=== PATIENT | male | born 1985 | race Caucasian/White ===

== ENCOUNTER 2016-10-06 05:40 | Outpatient (CLI) | payer BC ==
[~2016-10-06] VITALS: Ht 190.5 cm; Wt 96.2 kg
[~2016-10-06 05:40] MED LIST: [UNRECOGNIZED DRUG - REMARK]
--- OUTSIDE RECORDS SUMMARY | 2016-10-06 05:43 | XMS REPORT | Continuity of Care Document ---
Author Author [facility] Address Unknown Phone Unavailable Allergies Active Description Code Type Severity Reaction Onset Reported/Identified Relationship to Patient Clinical Status Yes No Known Drug Allergies [id number] Drug Allergy Unknown N/ A 09/29/2010 Medications Problems Date Dx Coded Attending Type Code Diagnosis Diagnosed By 09/29/2010 Ot 882.0 OPEN WOUND OF HAND 09/29/2010 Ot 883.0 OPEN WOUND OF FINGER 09/29/2010 Ot E000.8 OTHER EXTERNAL CAUSE STATUS 09/29/2010 Ot E849.0 ACCIDENT IN HOME 09/29/2010 Ot E888.0 FALL STRIKING SHARP OBJECT 09/29/2010 Ot E920.8 ACC-CUTTING INSTRUM NEC 09/29/2010 Ot V06.1 [id number], COMBINED [ 09/20/2012 462 PHARYNGITIS ACUTE 09/20/2012 780.4 DIZZINESS AND VERTIGO 09/20/2012 JEANINE HENRIQUEZ DO 462 PHARYNGITIS ACUTE 09/20/2012 JEANINE HENRIQUEZ DO 780.4 DIZZINESS AND VERTIGO 09/20/2012 462 PHARYNGITIS ACUTE 09/20/2012 780.4 DIZZINESS AND VERTIGO 09/20/2012 462 PHARYNGITIS ACUTE 09/20/2012 780.4 DIZZINESS AND VERTIGO 09/20/2012 462 PHARYNGITIS ACUTE 09/20/2012 780.4 DIZZINESS AND VERTIGO 09/20/2012 462 PHARYNGITIS ACUTE 09/20/2012 780.4 DIZZINESS AND VERTIGO 09/20/2012 JEANINE HENRIQUEZ DO 462 PHARYNGITIS ACUTE 09/20/2012 JEANINE HENRIQUEZ DO 780.4 DIZZINESS AND VERTIGO 10/09/2012 JEANINE HENRIQUEZ DO 780.2 SYNCOPE AND COLLAPSE 10/09/2012 780.2 SYNCOPE AND COLLAPSE 10/09/2012 780.2 SYNCOPE AND COLLAPSE 10/09/2012 780.2 SYNCOPE AND COLLAPSE 10/09/2012 780.2 SYNCOPE AND COLLAPSE 10/09/2012 JEANINE HENRIQUEZ DO 780.2 SYNCOPE AND COLLAPSE 12/19/2012 780.79 fatigue 12/19/2012 785.1 PALPITATIONS 12/19/2012 780.79 fatigue 12/19/2012 785.1 PALPITATIONS 12/19/2012 JEANINE HENRIQUEZ DO 780.79 fatigue 12/19/2012 JEANINE HENRIQUEZ DO 785.1 PALPITATIONS 12/25/2012 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 12/25/2012 JEANINE HENRIQUEZ DO K 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 01/08/2013 JEANINE HENRIQUEZ DO 706.1 ACNE 01/09/2013 Ot 780.2 SYNCOPE AND COLLAPSE 01/09/2013 Ot 780.4 DIZZINESS AND GIDDINESS 09/16/2015 Ot 780.2 09/16/2015 Ot 780.2 09/16/2015 Ot 780.4 09/16/2015 Ot 780.4 09/21/2015 Ot 780.2 09/21/2015 Ot 780.2 09/21/2015 Ot 780.4 09/21/2015 Ot 780.4 09/21/2015 HARDY RIVERO, JESUSITA Wiley Ot R10.12 09/21/2015 HARDY RIVERO, JESUSITA Wiley Ot R11.0 09/21/2015 HARDY RIVERO, JESUSITA Wiley Ot R50.9 10/01/2015 HARDY RIVERO, JESUSITA Wiley Ot R10.12 10/01/2015 HARDY RIVERO, JESUSITA Wiley Ot R11.0 10/01/2015 HARDY RIVERO, JESUSITA Wiley Ot R50.9 11/06/2015 HARDY RIVERO, JESUSITA Wiley Ot R10.12 11/06/2015 HARDY RIVERO, JESUSITA Wiley Ot R11.0 11/06/2015 HARDY RIVERO, JESUSITA Wiley Ot R50.9 03/07/2016 Ot 780.2 SYNCOPE AND COLLAPSE 03/07/2016 Ot 780.2 SYNCOPE AND COLLAPSE 03/07/2016 Ot 780.4 DIZZINESS AND GIDDINESS 03/07/2016 Ot 780.4 DIZZINESS AND GIDDINESS 03/07/2016 Ot 780.2 SYNCOPE AND COLLAPSE 03/07/2016 Ot 780.4 DIZZINESS AND GIDDINESS 03/07/2016 HARDY RIVERO, JESUSITA Wiley Ot R10.12 LEFT UPPER QUADRANT PAIN 03/07/2016 JESUSITA MIJARES Ot R11.0 NAUSEA 03/07/2016 JESUSITA MIJARES Ot R50.9 FEVER, UNSPECIFIED 03/07/2016 JESUSITA MIJARES Ot R10.12 LEFT UPPER QUADRANT PAIN 03/07/2016 JESUSITA MIJARES Ot R11.0 NAUSEA 03/07/2016 JESUSITA MIJARES Ot R50.9 FEVER, UNSPECIFIED Procedures Code Description [place] [address] ROUTINE VENIPUNCTURE 09/20/2012 38573 STREP A (IN-HOUSE) 09/20/2012 50507 CMP 09/20/2012 18121 TSH 09/20/2012 12918 CBC 09/20/2012 50297 EKG, TRACING (IN-HOUSE) 09/20/2012 21700 EVENT MONITOR CARDI GIANNI CASTROZ 10/09 20498 EVENT MONITOR CARDI MATTHEW CHUCK 10/10 87319 ROUTINE VENIPUNCTURE 10/10/2012 92903 EKG, TRACING (IN-HOUSE) 10/10/2012 27979 LIPID PANEL 10/10 88897 BNP 10/10/2012 99875 CRP HS (CARDIO) 10/10/2012 31664 NUCLEAR STRESS TESTING 11/08/2012 16178 ECHO 2D 2012 61760 TILT TABLE EVALUATION 11/08/2012 59629 ROUTINE VENIPUNCTURE 12/19/2012 23671 CBC 12/19/2012 29366 TESTOSTERONE TOTAL 12/19/2012 01742 T4 12/19/2012 99904 TSH 12/19/2012 83891 OXIMETRY 2012 07629 ROUTINE VENIPUNCTURE 12/25/2012 02878 PSA FREE AND TOTAL 12/25/2012 Results Encounters ACCT No. Visit Date/Time Discharge Status Pt. Type Provider Facility Loc./Unit Complaint [id number] 01/08/2013 13:28:00 01/08/2013 23: 59:59 CLS Outpatient JEANINE HENRIQUEZ DO [id number] 11/07/2012 10:23:00 11/07/2012 23: 59:59 CLS Outpatient [id number] 10/10/2012 13:55:00 10/10/2012 23: 59:59 CLS Outpatient [id number] 10/09/2012 13:19:00 10/09/2012 23: 59:59 CLS Outpatient JEANINE HENRIQUEZ DO [id number] 09/20/2012 09:40:00 09/20/2012 23: 59:59 [facility] Outpatient [id number] 12/25/2012 11:36:00 Document Registration [id number] 12/19/2012 10:05:00 Document Registration
== END 2016-10-06 15:14 ==
LOC: PREOP 05:40
PROVIDERS: ATTEND Surgery
DX: Z01.818 Encounter for other preprocedural examination (principal); R13.10 Dysphagia, unspecified

== ENCOUNTER 2016-10-11 06:55 | Day surgery (SDC) | payer BC ==
[~2016-10-11] VITALS: Ht 190.5 cm; Wt 96.2 kg
--- OUTSIDE RECORDS SUMMARY | 2016-10-11 07:00 | XMS REPORT | Continuity of Care Document ---
Author Author [facility] of [facility] Address Unknown Phone Unavailable Allergies Active Description Code Type Severity Reaction Onset Reported/Identified Relationship to Patient Clinical Status Yes No Known Drug Allergies [id number] Drug Allergy Unknown N/ A 09/29/2010 Medications Problems Date Dx Coded Attending Type Code Diagnosis Diagnosed By 09/29/2010 Ot 882.0 OPEN WOUND OF HAND 09/29/2010 Ot 883.0 OPEN WOUND OF FINGER 09/29/2010 Ot E000.8 OTHER EXTERNAL CAUSE STATUS 09/29/2010 Ot E849.0 ACCIDENT IN HOME 09/29/2010 Ot E888.0 FALL STRIKING SHARP OBJECT 09/29/2010 Ot E920.8 ACC-CUTTING INSTRUM NEC 09/29/2010 Ot V06.1 [id number], COMBINED [ 09/20/2012 462 PHARYNGITIS ACUTE 09/20/2012 [...] Procedures Code Description [place] [address] ROUTINE VENIPUNCTURE 09/20/2012 52851 STREP A (IN-HOUSE) 09/20/2012 45622 CMP 09/20/2012 54879 TSH 09/20/2012 16933 CBC 09/20/2012 86857 EKG, TRACING (IN-HOUSE) 09/20/2012 44714 EVENT MONITOR CARDI GIANNI CASTROZ 10/09 13750 EVENT MONITOR CARDI MATTHEW CHUCK 10/10 36785 ROUTINE VENIPUNCTURE 10/10/2012 08484 EKG, TRACING (IN-HOUSE) 10/10/2012 74046 LIPID PANEL 10/10 55786 BNP 10/10/2012 10329 CRP HS (CARDIO) 10/10/2012 06085 NUCLEAR STRESS TESTING 11/08/2012 77896 ECHO 2D 2012 60123 TILT TABLE EVALUATION 11/08/2012 34539 ROUTINE VENIPUNCTURE 12/19/2012 43171 CBC 12/19/2012 26277 TESTOSTERONE TOTAL 12/19/2012 69208 T4 12/19/2012 43506 TSH 12/19/2012 30577 OXIMETRY 2012 75924 ROUTINE VENIPUNCTURE 12/25/2012 68673 PSA FREE AND TOTAL 12/25/2012 Results Encounters ACCT No. Visit Date/Time Discharge Status Pt. Type Provider Facility Loc./Unit Complaint [id number] 01/08/2013 13:28:00 01/08/2013 23: 59:59 CLS Outpatient JEANINE HENRIQUEZ DO [id number] 11/07/2012 10:23:00 11/07/2012 23: 59:59 CLS Outpatient [id number] 10/10/2012 13:55:00 10/10/2012 23: 59:59 CLS Outpatient [id number] 10/09/2012 13:19:00 10/09/2012 23: 59:59 CLS Outpatient JEANINE HENRIQUEZ DO [id number] 09/20/2012 09:40:00 09/20/2012 23: 59:59 [facility] Outpatient [id number] 12/25/2012 11:36:00 Document Registration [id number] 12/19/2012 10:05:00 Document Registration
--- OUTSIDE RECORDS SUMMARY | 2016-10-11 07:00 | XMS REPORT | Continuity of Care Document ---
Author Author [facility] Address Unknown Phone Unavailable Allergies Active Description Code Type Severity Reaction Onset Reported/Identified Relationship to Patient Clinical Status Yes No Known Drug Allergies [id number] Drug Allergy Unknown N/ A 09/29/2010 Medications Problems Date Dx Coded Attending Type Code Diagnosis Diagnosed By 09/29/2010 Ot 882.0 OPEN WOUND OF HAND 09/29/2010 Ot 883.0 OPEN WOUND OF FINGER 09/29/2010 Ot E000.8 OTHER EXTERNAL CAUSE STATUS 09/29/2010 Ot E849.0 ACCIDENT IN HOME 09/29/2010 Ot E888.0 FALL STRIKING SHARP OBJECT 09/29/2010 Ot E920.8 ACC-CUTTING INSTRUM NEC 09/29/2010 Ot V06.1 [id number], COMBINED [ 09/20/2012 462 PHARYNGITIS ACUTE 09/20/2012 [...] Procedures Code Description [place] [address] ROUTINE VENIPUNCTURE 09/20/2012 29779 STREP A (IN-HOUSE) 09/20/2012 93618 CMP 09/20/2012 42529 TSH 09/20/2012 80336 CBC 09/20/2012 68248 EKG, TRACING (IN-HOUSE) 09/20/2012 29713 EVENT MONITOR CARDI GIANNI CASTROZ 10/09 35207 EVENT MONITOR CARDI MATTHEW CHUCK 10/10 94040 ROUTINE VENIPUNCTURE 10/10/2012 50966 EKG, TRACING (IN-HOUSE) 10/10/2012 18809 LIPID PANEL 10/10 85148 BNP 10/10/2012 58308 CRP HS (CARDIO) 10/10/2012 67302 NUCLEAR STRESS TESTING 11/08/2012 08420 ECHO 2D 2012 22870 TILT TABLE EVALUATION 11/08/2012 40962 ROUTINE VENIPUNCTURE 12/19/2012 98875 CBC 12/19/2012 03074 TESTOSTERONE TOTAL 12/19/2012 27057 T4 12/19/2012 43525 TSH 12/19/2012 49745 OXIMETRY 2012 68936 ROUTINE VENIPUNCTURE 12/25/2012 37587 PSA FREE AND TOTAL 12/25/2012 Results Encounters ACCT No. Visit Date/Time Discharge Status Pt. Type Provider Facility Loc./Unit Complaint [id number] 01/08/2013 13:28:00 01/08/2013 23: 59:59 CLS Outpatient JEANINE HENRIQUEZ DO [id number] 11/07/2012 10:23:00 11/07/2012 23: 59:59 CLS Outpatient [id number] 10/10/2012 13:55:00 10/10/2012 23: 59:59 CLS Outpatient [id number] 10/09/2012 13:19:00 10/09/2012 23: 59:59 CLS Outpatient JEANINE HENRIQUEZ DO [id number] 09/20/2012 09:40:00 09/20/2012 23: 59:[address] [facility] Outpatient [id number] 12/25/2012 11:36:00 Document Registration [id number] 12/19/2012 10:05:00 Document Registration
[2016-10-11] MEDS ORDERED: NS IV 1000 ML 1,000 ML IV STA (07:16)
[2016-10-11] MEDS ORDERED: HURRICAINE EXT TUBE (BENZOCAINE) XX PRN (07:30)
[2016-10-11] MEDS ORDERED: FLUMAZENIL (ROMAZICON) 0.1 MG/ML 5 ML VIAL INJ PRN (07:30)
[2016-10-11] MEDS ORDERED: MIDAZOLAM 2 MG/2 ML (VERSED) VIAL IVP PRN (07:30)
[2016-10-11] MEDS ORDERED: fentaNYL INJECTION 100 MCG/2 ML AMP IVP PRN (07:30)
[2016-10-11] MEDS ORDERED: NALOXONE 0.4 MG/ML 1 ML (NARCAN) VIAL IVP PRN (07:30)
--- NOTE | 2016-10-11 07:38 | Progress Note-Pre Operative ---
Pre-Operative Progress Note H&P Reviewed The H&P was reviewed, patient examined and no changes noted. Date H&P Reviewed: Oct 11, 2016 Time H&P Reviewed: 07:38 Pre-Operative Diagnosis: dysphagia MONIK STEINBERG DO Oct 11, 2016 7:38 am
[2016-10-11 07:52] VITALS: BP 118/80
[2016-10-11] MEDS ORDERED: proPOfol 200 MG/20 ML (DIPRIVAN) VIAL IV ONE (08:25)
[2016-10-11] MEDS ORDERED: MIDAZOLAM 2 MG/2 ML (VERSED) VIAL ONE (08:26)
--- NOTE | 2016-10-11 08:52 | Progress Note-Post Operative ---
Post-Operative Progess Note Pre-Operative Diagnosis dysphagia Post-Operative Diagnosis gastritis, reflux esophagitis Post-Op Procedure Note Date of Procedure: Oct 11, 2016 Name of Procedure: egd c biopsies Procedure Note/Findings see note Anesthesia Type per animator Estimated blood loss (mL): none Specimen(s) collected antrum, body, distal esophagus MONIK STEINBERG DO Oct 11, 2016 8:52 am
[2016-10-11] MEDS ORDERED: PANT40TA2 PO (08:55)
[2016-10-11] MEDS ORDERED: SUCR1TAB36 PO (08:55)
--- NOTE | 2016-10-11 08:56 | Discharge Inst-Simple/Standard ---
Discharge Inst-Standard Discharge Medications New, Converted or Re-Newed RX: RX on Chart Patient Instructions/Follow Up Plan of Care/Instructions/FU: 3 weeks Sylvia Activity as Tolerated: Yes Discharge Diet: Regular Diet MONIK STEINBERG DO Oct 11, 2016 8:56 am
[2016-10-11 09:15] VITALS: BP 121/72
[2016-10-11] MEDS ORDERED: OMEP20TA33 PO (09:32)
[2016-10-11 09:45] VITALS: BP 128/88
[2016-10-11 10:38] VITALS: BP 128/88
--- NOTE | 2016-10-11 12:49 | PROCEDURE REPORT ---
PROCEDURE PHYSICIAN: MONIK STEINBERG DATE OF PROCEDURE: 10/11/2016 PREOPERATIVE DIAGNOSIS: Dysphagia. POSTOPERATIVE DIAGNOSES: 1. Gastritis. 2. Reflux esophagitis. PROCEDURE: EGD with biopsies. SURGEON: Sylvia. ANESTHESIA: Per ELECTROLYSIST. ESTIMATED BLOOD LOSS: None. COMPLICATIONS: None. INDICATIONS: The patient is a 31-year-old male with worsening reflux and having difficulty swallowing. The patient understands risks and benefits of the procedure and wished to proceed with procedure. Consent was signed on the chart. PROCEDURE: The patient was taken to the endoscopy suite, placed in left lateral recumbent position. Timeout was performed. The scope was inserted into the mouth down the esophagus, stomach and into the duodenum without difficulty. There were no polyps, masses, ulcerations within the duodenum. The scope was then slowly retracted back into the stomach and further insufflated. The stomach had generalized erythematous look consistent with gastritis. Biopsy of the antrum was obtained. The scope was also retroflexed noting more erythema and a biopsy of the body was obtained. The scope was then returned to its normal position and slowly withdrawn. There were some changes consistent with some reflux esophagitis. Biopsy was obtained. The scope was slowly retracted back until completely removed noting no other pathology. RECOMMENDATIONS: The patient will be started on Protonix and 40 mg daily and Carafate 1 gram 4 times a day. We will see him back in the office in approximately 3 weeks and see how he is doing at that time. We will go over pathology as well. If he has any problems prior to that, he should be reevaluated at that time. Job ID: [id number] Dictated Date: 10/11/2016 09:00:42 Pre Press Operator Date: 10/11/2016 12:43:10 / chester
== END 2016-10-11 09:50 | disposition home or self-care (01) ==
LOC: ENDO 06:55
PROVIDERS: ATTEND Surgery
DX: K21.0 Gastro-esophageal reflux disease with esophagitis (principal); K29.70 Gastritis, unspecified, without bleeding
CPT/HCPCS: 88305; 88342

== ENCOUNTER 2019-06-23 14:48 | Emergency (ER) | payer BC ==
[~2019-06-23] VITALS: Ht 182 cm; Wt 100.0 kg
[~2019-06-23 14:48] MED LIST changes: +OMEP20TA33 PO; +PANT40TA2 PO; +SUCR1TAB36 PO
[2019-06-23] MEDS ORDERED: NS IV 1000 ML 1,000 ML IV SCH (15:00)
[2019-06-23] MEDS ORDERED: HYOSCYAMINE 0.125 MG (LEVSIN) TAB PO ONE (15:00)
[2019-06-23] MEDS ORDERED: ONDANSETRON 4 MG (ZOFRAN) ORAL DISSOLVE TAB PO ONE (15:00)
--- NOTE | 2019-06-23 15:18 | ED GI ---
General Chief Complaint: Abdominal/GI Problems Stated Complaint: STOMACH PAIN Nursing Triage Note: THE PT IS AMBULATORY TO THE ROOM WITHOUT DIFFICULTY. NO DISTRESS IS SEEN ON ARRIVAL. LOC IS NORMAL FOR THE PT. Sepsis Screen: No Definite Risk Source of Information: Patient Exam Limitations: No Limitations History of Present Illness Date Seen by Provider: Jun 23, 2019 Time Seen by Provider: 15:17 Initial Comments To ER with reports of periumbilical abdominal pain described as cramping associated with diarrhea about 5-6 episodes today, he did have a bit of blood in it but attributes that to his hemorrhoid. No nausea or vomiting. No fever or chills. Timing/Duration: 1-2 Days Severity/Quality: Cramping Location: Periumbilical Radiation: No Radiation Activities at Onset: None Associated Symptoms: Denies Symptoms Allergies and Home Medications Allergies Coded Allergies: No Known Drug Allergies (Verified , 10/11/16) Home Medications Omeprazole Magnesium 20 Mg Tablet.dr, 20 MG PO DAILY Prescribed by: ARLETH DIGGS on 10/11/16 0932 Sucralfate 1 Gm Tablet, 1 GM PO QID Prescribed by: MONIK STEINBERG on 10/11/16 0855 Patient Home Medication List Home Medication List Reviewed: Yes Review of Systems Review of Systems Constitutional: see HPI EENTM: No Symptoms Reported Respiratory: No Symptoms Reported Cardiovascular: No Symptoms Reported Gastrointestinal: Abdominal Pain, Diarrhea Genitourinary: No Symptoms Reported Musculoskeletal: no symptoms reported Skin: no symptoms reported Psychiatric/Neurological: No Symptoms Reported Endocrine: No Symptoms Reported Past Qjonkrh-Rejitl-Tzcyxj Hx Patient Social History Recent Foreign Travel: No Contact w/Someone Who Travel: No Recent Infectious Disease Expo: No Recent Hopitalizations: No Immunizations Up To Date Date of Influenza Vaccine: Apr 14, 2016 Seasonal Allergies Seasonal Allergies: No Physical Exam Vital Signs Vital Signs - First Documented 06/23/19 14:54 Temp 37.4 Pulse 80 Resp 16 B/P (MAP) 140/94 (109) Capillary Refill : Less Than 3 Seconds Height/Weight/BMI Height: 6'3.00" Weight: 212lbs. 0.0oz. 96.969032ns; 30.00 BMI Method: General Appearance: WD/WN, no apparent distress HEENT: PERRL/EOMI, normal ENT inspection Respiratory: no respiratory distress, no accessory muscle use Gastrointestinal: normal bowel sounds, soft, tenderness Extremities: normal range of motion, non-tender Neurologic/Psychiatric: alert, normal mood/affect, oriented x 3 Skin: normal color, warm/dry Progress/Results/Core Measures Results/Orders Lab Results Laboratory Tests Test 06/23/19 15:10 Range/Units White Blood Count 6.6 4.3-11.0 10^3/uL Red Blood Count 4.96 4.35-5.85 10^6/uL Hemoglobin 14.6 13.3-17.7 G/DL Hematocrit 43 40-54 % Mean Corpuscular Volume 87 80-99 FL Mean Corpuscular Hemoglobin 29 25-34 PG Mean Corpuscular Hemoglobin Concent 34 32-36 G/DL Red Cell Distribution Width 13.0 10.0-14.5 % Platelet Count 246 130-400 10^3/uL Mean Platelet Volume 10.1 7.4-10.4 FL Neutrophils (%) (Auto) 73 42-75 % Lymphocytes (%) (Auto) 15 12-44 % Monocytes (%) (Auto) 10 0-12 % Eosinophils (%) (Auto) 2 0-10 % Basophils (%) (Auto) 0 0-10 % Neutrophils # (Auto) 4.8 1.8-7.8 X 10^3 Lymphocytes # (Auto) 1.0 1.0-4.0 X 10^3 Monocytes # (Auto) 0.7 0.0-1.0 X 10^3 Eosinophils # (Auto) 0.2 0.0-0.3 10^3/uL Basophils # (Auto) 0.0 0.0-0.1 10^3/uL Sodium Level 142 135-145 MMOL/L Potassium Level 3.7 3.6-5.0 MMOL/L Chloride Level 106 98-107 MMOL/L Carbon Dioxide Level 23 21-32 MMOL/L Anion Gap 13 5-14 MMOL/L Blood Urea Nitrogen 11 7-18 MG/DL Creatinine 0.88 0.60-1.30 MG/DL Estimat Glomerular Filtration Rate > 60 BUN/Creatinine Ratio 13 Glucose Level 92 70-105 MG/DL Calcium Level 8.7 8.5-10.1 MG/DL Corrected Calcium 8.5 8.5-10.1 MG/DL Total Bilirubin 0.6 0.1-1.0 MG/DL Aspartate Amino Transf (AST/SGOT) 28 5-34 U/L Alanine Aminotransferase (ALT/SGPT) 36 0-55 U/L Alkaline Phosphatase 64 40-136 U/L Total Protein 6.9 6.4-8.2 GM/DL Albumin 4.2 3.2-4.5 GM/DL Lipase 77 8-78 U/L My Orders Orders - NIDIA NATHAN APRN Cbc With Automated Diff (06/23/19 14:55) Comprehensive Metabolic Panel (06/23/19 14:55) Lipase (06/23/19 14:55) Ed Iv/Invasive Line Start (06/23/19 14:55) Ns Iv 1000 Ml (Sodium Chloride 0.9%) (06/23/19 15:00) Ondansetron Oral Dissolve Tab (Zofran (06/23/19 15:00) Hyoscyamine Sl Tablet (Levsin Sl Tablet) (06/23/19 15:00) Medications Given in ED Current Medications Medications Dose Ordered Sig/Gloria Route Start Time Stop Time Status Last Admin Dose Admin Hyoscyamine Sulfate 0.25 mg ONCE ONCE PO 06/23/19 15:00 06/23/19 15:01 DC 06/23/19 15:05 0.25 MG Ondansetron HCl 4 mg ONCE ONCE PO 06/23/19 15:00 06/23/19 15:01 DC 06/23/19 15:06 4 MG Vital Signs/I&O 06/23/19 14:54 Temp 37.4 Pulse 80 Resp 16 B/P (MAP) 140/94 (109) Blood Pressure Mean: 109 POS Departure Impression Primary Impression: Gastroenteritis Disposition: 01 HOME, SELF-CARE Condition: Stable Departure-Patient Inst. Decision time for Depature: 15:56 Referrals: NO,LOCAL PHYSICIAN (PCP/Family) Primary Care Physician Patient Instructions: [id number] Add. Discharge Instructions: 1. Use hwux-ukz-kroomwu Imodium as needed for the diarrhea 2. Clear liquids only for the next 12-24 hours then you may add things in like bananas rice applesauce and toast. Return to ER for any worsening pain fevers or other concerns. Follow-up with your doctor this week. All discharge instructions reviewed with patient and/or family. Voiced understanding. Work/School Note: Work Release Form Date Seen in the Emergency Department: Jun 23, 2019 Return to Work: Jun 25, 2019 NIDIA NATHAN APRN Jun 23, 2019 15:18 POS
[2019-06-23 15:33] LABS: BASOPHILS % (AUTO) 0 % (0-10); EOSINOPHILS # (AUTO) 0.2 10^3/uL (0.0-0.3); EOSINOPHILS % (AUTO) 2 % (0-10); HEMATOCRIT 43 % (40-54); HEMOGLOBIN 14.6 G/DL (13.3-17.7); LYMPHOCYTES % (AUTO) 15 % (12-44); MEAN CORPUSCULAR HEMOGLOBIN 29 PG (25-34); MEAN CORPUSCULAR HGB CONC 34 G/DL (32-36); MEAN CORPUSCULAR VOLUME 87 FL (80-99); MEAN PLATELET VOLUME 10.1 FL (7.4-10.4); MONOCYTES # (AUTO) 0.7 X 10^3 (0.0-1.0); MONOCYTES % (AUTO) 10 % (0-12); NEUTROPHILS # (AUTO) 4.8 X 10^3 (1.8-7.8); NEUTROPHILS % (AUTO) 73 % (42-75); PLATELET COUNT 246 10^3/uL (130-400); WHITE BLOOD COUNT 6.6 10^3/uL (4.3-11.0)
[2019-06-23 15:47] LABS: ALANINE AMINOTRANSFERASE 36 U/L (0-55); ALBUMIN 4.2 GM/DL (3.2-4.5); ALKALINE PHOSPHATASE 64 U/L (40-136); BILIRUBIN,TOTAL 0.6 MG/DL (0.1-1.0); BUN/CREATININE RATIO 13; CALCIUM 8.7 MG/DL (8.5-10.1); CARBON DIOXIDE 23 MMOL/L (21-32); CHLORIDE 106 MMOL/L (98-107); CREATININE SERUM 0.88 MG/DL (0.60-1.30); GFR ESTIMATED > 60; GLUCOSE 92 MG/DL (70-105); LIPASE 77 U/L (8-78); POTASSIUM 3.7 MMOL/L (3.6-5.0); SODIUM 142 MMOL/L (135-145); TOTAL PROTEIN 6.9 GM/DL (6.4-8.2)
[2019-06-23 16:05] VITALS: BP 140/90
== END 2019-06-23 16:07 | disposition home or self-care (01) ==
LOC: EDUNIT# 14:48 → ER 14:49
DX: K52.9 Noninfective gastroenteritis and colitis, unspecified (principal)
CPT/HCPCS: 36415; 80053; 83690; 85025; 96360

== ENCOUNTER 2020-08-25 05:31 | Outpatient (RCR) | payer BC ==
[~2020-08-25] VITALS: Ht 187 cm; Wt 100.9 kg
[~2020-08-25 05:31] MED LIST changes: +ESOM20TA PO
== END 2020-08-25 09:38 | disposition home or self-care (01) ==
LOC: PREOP 05:31
PROVIDERS: ATTEND Surgery
DX: Z01.812 Encounter for preprocedural laboratory examination (principal); K92.1 Melena; L98.8 Other specified disorders of the skin and subcutaneous tissue; Z20.822 Contact with and (suspected) exposure to COVID-19
CPT/HCPCS: 87635

== ENCOUNTER 2020-08-27 08:24 | Day surgery (SDC) | payer BC ==
[~2020-08-27] VITALS: Ht 187 cm; Wt 100.9 kg
[2020-08-27] VITALS (9 sets, daily range): BP systolic 108–135; BP diastolic 60–89
[2020-08-27] MEDS ORDERED: fentaNYL INJECTION 100 MCG/2 ML AMP ONE (08:59)
[2020-08-27] MEDS ORDERED: ceFAZolin 2 GM IV Premixed 50 ML IV ONE (09:00)
[2020-08-27] MEDS ORDERED: LACTATED RINGERS 1,000 ML IV PRN (09:00)
[2020-08-27] MEDS ORDERED: MIDAZOLAM 2 MG/2 ML (VERSED) VIAL ONE (09:00)
[2020-08-27] MEDS ORDERED: ONDANSETRON 4 MG/2 ML (SDV) Z0FRAN ONE (09:03)
[2020-08-27] MEDS ORDERED: proPOfol 200 MG/20 ML (DIPRIVAN) VIAL IV ONE (09:03)
[2020-08-27] MEDS ORDERED: SEVOFLURANE (ULTANE) 15 ML INHAL SOLN ONE ×2 (09:03→13:02)
[2020-08-27] MEDS ORDERED: LIDOCAINE PF 2% 5 ML (XYLOCAINE) VIAL ONE (09:03)
--- NOTE | 2020-08-27 10:08 | Progress Note-Pre Operative ---
Pre-Operative Progress Note H&P Reviewed The H&P was reviewed, patient examined and no changes noted. Date Seen by Provider: Aug 27, 2020 Time Seen by Provider: 10:07 Date H&P Reviewed: Aug 27, 2020 Time H&P Reviewed: 10:08 Pre-Operative Diagnosis: blood in stool, fistula MONIK STEINBERG DO Aug 27, 2020 10:08
[2020-08-27] MEDS ORDERED: LIDOCAINE/EPI 1%-1:100,000 (XYLOCAINE) 50 ML ONE (12:20)
[2020-08-27] MEDS ORDERED: morphine INJ 10 MG/ML 1ML (SYR OR VIAL) IVP ONE (13:30)
[2020-08-27] MEDS ORDERED: fentaNYL INJECTION 100 MCG/2 ML AMP IVP ONE (13:30)
[2020-08-27] MEDS ORDERED: ONDANSETRON 4 MG/2 ML (SDV) Z0FRAN IVP PRN (13:30)
--- NOTE | 2020-08-27 13:49 | Progress Note-Post Operative ---
Post-Operative Progess Note Surgeon (s)/Shake Backboard Notcher (s) Surgeon MONIK STEINBERG DO Shake Backboard Notcher: na Pre-Operative Diagnosis blood in stool, fistula Post-Operative Diagnosis diverticulosis, anocutaneous fistula Procedure & Operative Findings Date of Procedure 08/27/20 Procedure Performed/Findings flex sig, exam under anesthesia, seton placement Anesthesia Type general Estimated Blood Loss Estimated blood loss (mL): none Specimens/Packing Specimens Removed na MONIK STEINBERG DO Aug 27, 2020 13:49
[2020-08-27] MEDS ORDERED: DOCU-143 PO (13:51)
[2020-08-27] MEDS ORDERED: HYDR-4226 PO (13:51)
--- NOTE | 2020-08-27 13:52 | Discharge Inst-Simple/Standard ---
Discharge Inst-Standard Discharge Medications New, Converted or Re-Newed RX: RX on Chart Patient Instructions/Follow Up Plan of Care/Instructions/FU: 1 week Sylvia Activity as Tolerated: Yes Discharge Diet: Regular Diet (high fiber) Other Inst to Patient Follow up Appt: Make appointment for 1 week. Instructions: No strenuous activity. May shower in 24 hours, no tub bath or soaking. Use incentive spirometer at home as directed. No Smoking Skin/Wound Care: Keep area clean and dry. Sitz bath after bowel movements and at least 2 times a day. Do not remove seton ( plastic cord) Symptoms to Report: Appetite Changes, Extremity Discoloration, Numbness/Tingling, Swelling Increased, Bleeding Excessive, Eyesight Changes, Pain Increased, Urine Color Change, Constipation(Persistent), Fever over 101 degree F, Pain/Pressure in chest, Urinating Difficulty, Cough Up/Vomit Blood, Heart Beat Irreg/Pounding, Pain/Pressure in jaw, Vaginal Bleeding Increase, Cramps in feet or legs, Lightheadedness, Pain/Pressure in shoulder, Diarrhea(Persistent), Memory Changes Suddenly, Questions/Concerns, Weight gain consecutive days, Dizziness/Fainting, Nausea/Vomiting, Shortness of Breath, Weight gain over 2 pounds If questions or concerns contact your physician Or seek help at emergency department. MONIK STEINBERG DO Aug 27, 2020 13:52
--- NOTE | 2020-08-27 14:33 | Anesthesia-General Post-Op ---
General Patient Condition Mental Status/LOC: Same as Preop Cardiovascular: Satisfactory Nausea/Vomiting: Absent Respiratory: Satisfactory Pain: Controlled Complications: Absent Post Op Complications Complications None Follow Up Care/Instructions Patient Instructions None needed. Anesthesia/Patient Condition Patient Condition Patient is doing well, no complaints, stable vital signs, no apparent adverse anesthesia problems. No complications reported per nursing. KIKO MARIE CRNA Aug 27, 2020 14:33
--- NOTE | 2020-08-27 15:30 | OPERATIVE REPORT ---
DATE OF SERVICE: 08/27/2020 PREOPERATIVE DIAGNOSIS: Blood in stool fistula. POSTOPERATIVE DIAGNOSES: Diverticulosis, anocutaneous fistula. PROCEDURES PERFORMED: Flexible sigmoidoscopy, exam under anesthesia and seton placement. SURGEON: Monik Ward DO ANESTHESIA: General. ESTIMATED BLOOD LOSS: None. COMPLICATIONS: None. INDICATIONS FOR PROCEDURE: The patient is a 35-year-old male with blood in stool and suspected fistula. He understands risks and benefits of procedure and wished to proceed with the procedure. Consent was signed in the chart. DESCRIPTION OF PROCEDURE: The patient was taken to the operating suite and placed in a lithotomy position. Timeout was performed. Digital rectal exam was performed. No palpable polyps, masses or ulcerations. Scope was inserted in the rectum and advanced through the rectum into the sigmoid colon. There were no polyps, masses or ulcerations noted within the sigmoid colon. There was diverticulosis present. Scope was then slowly retracted back into the rectum, where scope was also inserted and retracted multiple times, noting no other pathology. Scope was retroflexed and returned to its normal position. The scope was slowly retracted until completely removed. At this time, an Angiocath needle and syringe with peroxide was used to inject into the small punctate opening at approximately the 2 o'clock position. A Dittmar retractor was inserted into the anus and bubbles were able to be visualized just above the sphincter. A fistula probe was then used to easily go through the fistula tract. A seton was then placed through the tract and then tightened down. Local anesthetic was also infiltrated along the left side of the anus and the fistula tract. No other pathology was noted. The area was then washed and dried and bandage was applied. The patient tolerated the procedure well without any complications. He was taken to the recovery room in a stable condition. RECOMMENDATIONS: The patient will continue tightening the seton. May eventually do a fistulectomy once the seton is superficial. The patient has followup in one week. Any issues will be seen at that time. Job ID: [id number] DocumentID: [id number] Dictated Date: 08/27/2020 15:15:44 Edging Machine Setter Date: 08/27/2020 15:29:22 Dictated By: MONIK WARD DO [facility]
== END 2020-08-27 15:00 | disposition home or self-care (01) ==
LOC: SDC 08:24
PROVIDERS: ATTEND Surgery
DX: K92.1 Melena (principal); K57.30 Diverticulosis of large intestine without perforation or abscess without bleeding; K63.2 Fistula of intestine; K60.3 Anal fistula; K60.2 Anal fissure, unspecified; K21.9 Gastro-esophageal reflux disease without esophagitis; Z79.899 Other long term (current) drug therapy
CPT/HCPCS: 87081

== ENCOUNTER → 2021-02-22 | Outpatient (CLI) | payer BC ==
[~2021-02-22] VITALS: Ht 187 cm; Wt 96.8 kg
[~2021-02-22] MED LIST changes: +CASIRIVIMAB/IMDEVIMAB 1,200 MG in NS (IVPB) 250 ML IV ONE; +DOCU-143 PO; +EPINEPHrine INJECTION 1 MG/ML AMP IM PRN; +HYDR-4226 PO; +diphenhydrAMINE 50 MG/ML INJ (BENADRYL) IV PRN
[2021-02-22 12:12] VITALS: BP 139/92
[2021-02-22 13:12] VITALS: BP 131/79
== END ==
LOC: INFUSION 12:05
PROVIDERS: ATTEND Nurse Practitioner Family
DX: Z23 Encounter for immunization (principal); U07.1 COVID-19

== ENCOUNTER → 2021-03-04 | Outpatient (CLI) | payer BC ==
[~2021-03-04] MED LIST changes: -CASIRIVIMAB/IMDEVIMAB 1,200 MG in NS (IVPB) 250 ML IV ONE; -EPINEPHrine INJECTION 1 MG/ML AMP IM PRN; -diphenhydrAMINE 50 MG/ML INJ (BENADRYL) IV PRN
--- NOTE | 2021-03-04 17:24 | Diagnostic Imaging Report ---
PROCEDURE: CT head without contrast. TECHNIQUE: Multiple contiguous axial images were obtained through the brain without the use of intravenous contrast. Auto Exposure Controls were utilized during the CT exam to meet ALARA standards for radiation dose reduction. INDICATION: Headache. COMPARISON: None. FINDINGS: The ventricles are normal in size, shape and position. There is no midline shift or mass effect. There is no hemorrhage or evidence of acute ischemia. No extraaxial fluid collection or mass is seen. There is no dense vessel sign. There is no skull fracture. There is minimal mucosal thickening in the ethmoid sinuses. The mastoids are clear. IMPRESSION: 1. Negative CT head. 2. Minimal ethmoid sinus air cell disease. Dictated by: Dictated on workstation # [id number]
== END ==
LOC: RAD 16:46
PROVIDERS: ATTEND Family Medicine
DX: R51.9 Headache, unspecified (principal); R42 Dizziness and giddiness; Z86.16 Personal history of COVID-19
CPT/HCPCS: 70450

== ENCOUNTER 2023-01-25 18:33 | Emergency (ER) | payer OTHER, BC ==
[~2023-01-25] VITALS: Ht 187.9 cm; Wt 96.1 kg
--- NOTE | 2023-01-25 18:54 | ED Lower Extremity ---
General Chief Complaint: Lower Extremity Stated Complaint: RIGHT FOOT|SMASHED AT WORK Source: patient Exam Limitations: no limitations History of Present Illness Date Seen by Provider: Jan 25, 2023 Time Seen by Provider: 18:47 Initial Comments 37-year-old male presents to the ER with right foot injury. He states he was at work, and his foot got smashed between a pallet too and his stool at 6:05 PM. He is uncertain of his last tetanus. Allergies and Home Medications Allergies Coded Allergies: No Known Drug Allergies (Verified , 10/11/16) Patient Home Medication List Home Medication List Reviewed: Yes Docusate Sodium (Colace) 100 Mg Capsule, 100 MG PO BID Prescribed by: MONIK STEINBERG on 08/27/20 1351 Esomeprazole Magnesium (Nexium 24Hr) 20 Mg Tablet.dr, 20 MG PO DAILY, (Reported) Entered as Reported by: JUANCHO RIBEIRO on 08/20/20 1435 Hydrocodone/Acetaminophen (Hydrocodone/Acetaminophen 5 MG/325 MG TAB) 1 Each Tablet, 1 TAB PO Q6H Prescribed by: MONIK STEINBERG on 08/27/20 1351 Review of Systems Constitutional: see HPI Past Hfojyhw-Rykfso-Uioyfe Hx Seasonal Allergies Seasonal Allergies: No Past Medical History Surgeries: No Respiratory: No Currently Using CPAP: No Currently Using BIPAP: No Cardiac: No Neurological: No Genitourinary: No Gastrointestinal: Yes (BLOOD IN STOOLS) Gastroesophageal Reflux Musculoskeletal: No Chronic Back Pain Endocrine: No HEENT: No Hearing Impairment: Denies Cancer: No Psychosocial: No Integumentary: No Blood Disorders: No Physical Exam Vital Signs Vital Signs - First Documented 01/25/23 18:50 Pulse 101 B/P (MAP) 129/84 (99) Pulse Ox 98 O2 Delivery Room Air Capillary Refill : Height, Weight, BMI Height: 6'3.00" Weight: 212lbs. 0.0oz. 96.919901le; 28.85 BMI Method: General Appearance: WD/WN, no apparent distress Neck: supple, normal inspection Cardiovascular: regular rate, rhythm Respiratory: lungs clear, normal breath sounds, no respiratory distress, no accessory muscle use Feet: right foot pain, right foot soft tissue tenderness, right foot swelling, right foot other (Laceration to right lateral foot, sensation intact distally, cap refill less than 2 seconds) Neurologic/Psychiatric: alert, normal mood/affect Skin: normal color, warm/dry Procedures/Interventions Wound Location: Lower Extremities Other Wound Location Right foot Wound Length (cm): 2.5 Wound's Depth, Shape: linear Wound Explored: clean Irrigated w/ Saline (ccs): 150 Anesthesia: 1% Lidocaine Volume Anesthetic (ccs): 2 Wound Debrided: minimal Suture: Ethlion Suture Size: 3-0 Number of Sutures: 8 Progress/Results/Core Measures Results/Orders My Orders Orders - ANDRIA SINGH APRN Foot, Right, 3 View (01/25/23 18:50) Dipht,Pertuss(Acell),Tet Adult (Boostrix (01/25/23 19:00) Medications Given in ED Vital Signs/I&O 01/25/23 01/25/23 18:50 21:31 Pulse 101 B/P (MAP) 129/84 (99) 125/85 Pulse Ox 98 O2 Delivery Room Air Progress Progress Note : Progress Note Patient seen and evaluated, resting comfortably in bed, no acute distress. Based on exam and symptoms, x-ray of right foot ordered. Will clean wound to determine if it needs stitches. Will update tetanus. Wound cleaned and irrigated. Laceration repaired with sutures, see procedure note. X-ray of foot shows no acute fracture or dislocation. Results discussed with patient. Will discharge with prescription for crutches. Discharge instructions and return precautions provided. Diagnostic Imaging Diagonstic Imaging: Xray Plain Films/CT/US/NM/MRI: other (foot) Comments [facility] [place], [place] NAME: GARY BURCH Kade [facility] REC#: [id number] PT STATUS: DEP ER : 1985 PHYSICIAN: ANDRIA SINGH APRN ADMIT DATE: 01/25/23/ER Signed Date of Exam:01/25/23 FOOT, RIGHT, 3 VIEW CLINICAL INDICATION: Patient with foot pain. EXAM: X-ray of the right foot, 3 views. COMPARISON: None. FINDINGS AND IMPRESSION: 1: There is no acute fracture or dislocation. 2: There appears to be soft tissue swelling laterally adjacent to the 5th MTP joint. There is no soft tissue air or radiodense foreign object. 3: Otherwise, there is no significant bone or joint abnormality. Dictated by: Dictated on workstation # [id number] Dict: 01/25/231920 Trans: 01/25/232216 [id number] Interpreted by: OTIS HWANG MD Electronically signed by: OTIS HWANG MD 01/25/232216 Departure Impression Primary Impression: Contusion of foot Qualified Codes: S90.31XA - Contusion of right foot, initial encounter Additional Impression: Laceration of right foot Qualified Codes: S91.311A - Laceration without foreign body, right foot, initial encounter Disposition: HOME, SELF-CARE Condition: Stable Departure-Patient Inst. Decision time for Depature: 21:11 Referrals: ASPEN ALVARADO MD (PCP/Family) Primary Care Physician Patient Instructions: Laceration Repair With Stitches ED, Contusion (DC) Add. Discharge Instructions: Go to the DME or [facility] to get your crutches tomorrow. You will need the paper prescription for this. The address is listed below. Use the crutches to stay off of the foot the next week while the sutures are in. Return in 7 to 10 days to have the sutures removed. You may wash the wound, let water and soap run over it, do not scrub. Do not soak foot in the bathtub or swimming pool. Monitor for signs of infection including redness, swelling, discolored odorous drainage. You may take 800 mg of ibuprofen every 8 hours with food as needed for pain. You may also take 1000 mg of Tylenol every 8 hours as needed for pain. Return for signs of infection, or any other new, concerning, or worsening s ymptoms. [facility] [place] [address], [place] [address] All discharge instructions reviewed with patient and/or family. Voiced understanding. ANDRIA SINGH APRN Jan 25, 2023 18:54
[2023-01-25] MEDS ORDERED: TETANUS,DIPTH,PERTUSS P/F (BOOSTRIX) 0.5 ML VIAL IM ONE (19:00)
[2023-01-25 21:31] VITALS: BP 125/85
--- NOTE | 2023-01-25 23:28 | Diagnostic Imaging Report ---
CLINICAL INDICATION: Patient with foot pain. EXAM: X-ray of the right foot, 3 views. COMPARISON: None. FINDINGS AND IMPRESSION: 1: There is no acute fracture or dislocation. 2: There appears to be soft tissue swelling laterally adjacent to the 5th MTP joint. There is no soft tissue air or radiodense foreign object. 3: Otherwise, there is no significant bone or joint abnormality. Dictated by: Dictated on workstation # [id number]
== END 2023-01-25 21:31 | disposition home or self-care (01) ==
LOC: EDUNIT# 18:33 → ER 18:35
DX: S91.311A Laceration without foreign body, right foot, initial encounter (principal); W23.0XXA Caught, crushed, jammed, or pinched between moving objects, initial encounter; Y92.59 Other trade areas as the place of occurrence of the external cause; Y99.0 Civilian activity done for income or pay
CPT/HCPCS: 73630; 90715

== ENCOUNTER 2023-02-03 13:04 | Emergency (ER) | payer OTHER, BC ==
[2023-02-03 13:34] VITALS: BP 118/62
== END 2023-02-03 13:34 | disposition home or self-care (01) ==
LOC: EDUNIT# 13:04 → ER 13:06
DX: Z48.02 Encounter for removal of sutures (principal)